=== PATIENT | male | born 1980 | race Two or more races ===

== ENCOUNTER 2021-08-30 08:32 | Inpatient (IN) | payer OTHER ==
[2021-08-29 19:20] VITALS: BMI 27.8
[2021-08-30] MEDS: METHOCARBAMOL 500 MG TABLET PO PRN ×2 (02:35→18:17)
[2021-08-30] MEDS: cloNIDine HCL 0.1 MG TABLET PO PRN ×2 (04:15→18:17)
[2021-08-30] MEDS: ONDANSETRON *ODT* 4 MG TABLET SL PRN (04:17)
[2021-08-30] MEDS: clonazePAM 0.5 MG ODT TABLETS SL PRN ×2 (06:05→21:53)
[~2021-08-30 08:32] MED LIST: ACETAMINOPHEN 325 MG TABLET (FP) PO PRN; BENZOCAINE/MENTHOL (CHLORASEPTIC ) LOZENGE MM PRN; DICYCLOMINE HCL 10 MG CAPSULE PO PRN; IBUPROFEN 400 MG TABLET (FP) PO PRN; MAG HYDROX/AL HYDROX/SIMETH 30 ML UNIT-DOSE CUP PO PRN; MAGNESIUM CITRATE 300 ML BOTTLE PO PRN; MAGNESIUM HYDROX 2400MG/30ML ORAL SUSPENSION 30 ML CUP PO PRN; METHOCARBAMOL 500 MG TABLET ONE; NALOXONE HCL 0.4 MG/ML VIAL IM PRN; NICOTINE POLACRILEX 2 MG GUM BUC PRN; ONDANSETRON *ODT* 4 MG TABLET ONE; P-EPHED 60MG/TRIPROLIDI 2.5MG TABLET PO PRN; PROCHLORPERAZINE MALEATE 5 MG TABLET PO PRN; QUEtiapine FUMARATE 100 MG TABLET (FP) PO ONE; QUEtiapine FUMARATE 50 MG TABLET PO ONE; cloNIDine HCL 0.1 MG TABLET ONE; guaiFENesin 200 MG/10 ML 10 ML UNIT-DOSE CUPS PO PRN; methaDONE HCL 10 MG TABLET (FOR DETOX USE ONLY) ONE; methaDONE HCL 10 MG TABLET (FOR DETOX USE ONLY) PO ONE
[2021-08-30] MEDS ORDERED: methaDONE HCL 10 MG TABLET (FOR DETOX USE ONLY) PO ONE (10:00)
[2021-08-30] MEDS ORDERED: methaDONE HCL 10 MG TABLET (FOR DETOX USE ONLY) ONE (11:03)
[2021-08-30] MEDS: PRENATAL VITAMINS W/ FOLIC ACID TABLET (FP) PO SCH (11:12)
[2021-08-30] MEDS: NICOTINE 21 MG/24 HOURS TOPICAL PATCH TD SCH (11:12)
[2021-08-30] MEDS ORDERED: THIAMINE HCL 100 MG TABLET (FP) PO SCH (22:00)
[2021-08-30] MEDS ORDERED: MELATONIN 5 MG TABLETS PO SCH (22:00)
[2021-08-31] MEDS ORDERED: QUEtiapine FUMARATE 100 MG TABLET (FP) PO ONE (00:34)
[2021-08-31] MEDS: BISMUTH SUBSALICYLATE 524 MG/30 ML PO PRN ×2 (01:12→11:51)
[2021-08-31] MEDS: ONDANSETRON *ODT* 4 MG TABLET SL PRN (01:34)
[2021-08-31] MEDS: PRENATAL VITAMINS W/ FOLIC ACID TABLET (FP) PO SCH (11:31)
[2021-08-31] MEDS: METHOCARBAMOL 500 MG TABLET PO PRN ×2 (11:32→18:47)
[2021-08-31] MEDS: NICOTINE 21 MG/24 HOURS TOPICAL PATCH TD SCH (11:34)
[2021-08-31] MEDS: LOPERAMIDE HCL 2 MG CAPSULE PO PRN ×2 (11:52→18:47)
[2021-08-31 13:41] LABS: HEMATOCRIT 42.7 % (35.4-49); HEMOGLOBIN 14.8 GM/dL (11.7-16.9); MCH 30.1 pg (25.7-33.7); MCHC 34.7 g/dl (32.0-35.9); MEAN CELL VOLUME 86.8 fl (80-96); MEAN PLT VOLUME 7.5 fl (7.5-11.1); PLATELET COUNT 220 10^3/uL (134-434); RBC 4.92 M/mm3 (4.00-5.60); RDW 13.6 % (11.9-15.9); WHITE BLOOD COUNT 4.4 K/mm3 (4.0-10.0)
[2021-08-31 13:55] LABS: CALCIUM 9.1 mg/dL (8.5-10.1)
[2021-08-31 13:56] LABS: ALBUMIN 3.8 g/dl (3.4-5.0); BLOOD UREA NITROGEN 9.3 mg/dL (7-18)
[2021-08-31 14:00] LABS: BILIRUBIN,TOTAL 0.3 mg/dL (0.2-1)
[2021-08-31 14:05] LABS: CREATININE 0.9 mg/dL (0.55-1.3)
[2021-08-31 14:48] VITALS: BP 146/78; PULSE 86; TEMP 97.8
[2021-08-31] MEDS: clonazePAM 0.5 MG ODT TABLETS SL PRN (18:47)
[2021-09-01] MEDS ORDERED: methaDONE HCL 10 MG TABLET (FOR DETOX USE ONLY) PO ONE (10:00)
[2021-09-02] MEDS ORDERED: methaDONE HCL 10 MG TABLET (FOR DETOX USE ONLY) PO ONE (06:00)
== END 2021-08-31 19:52 | disposition left against medical advice (07) | DRG 770 ==
LOC: YASAS 08:32 → Y6N 10:06
PROVIDERS: ADMIT Allergy & Immunology; ATTEND Allergy & Immunology
PROC: HZ2ZZZZ Detoxification Services for Substance Abuse Treatment (ICD-10-PCS; principal; 2021-08-30)
DX: F11.23 Opioid dependence with withdrawal (principal); F12.20 Cannabis dependence, uncomplicated; F17.210 Nicotine dependence, cigarettes, uncomplicated; U07.1 COVID-19; I10 Essential (primary) hypertension; G47.00 Insomnia, unspecified; M54.50 Low back pain, unspecified; G89.29 Other chronic pain; R76.11 Nonspecific reaction to tuberculin skin test without active tuberculosis; Z87.828 Personal history of other (healed) physical injury and trauma
CPT/HCPCS: 36415; 80053; 85027; 86780; 87811; 93005; 93010; C9803-CS; J0735; Q0162; U0003; U0005